=== PATIENT | female | born 1985 | race Hispanic/Latino ===

== ENCOUNTER 2016-04-05 22:30 | Emergency (ER) | payer OTHER, MEDICARE ==
[~2016-04-05] VITALS: Ht 167.6 cm; Wt 82.6 kg
[~2016-04-05 22:30] MED LIST: AMITIZA24 MCG PO; DIAZEPAM5 MG PO; DILANTIN ER 10100 MG PO; DILAUDID8 MG PO; ESTRACE0.1 MG/GM TOP; ESZOPICLONE2 MG PO; GABAPENTIN400 MG PO; HYDROMORPHONE HC4 MG PO; KETOROLAC TROME10 M1 PO; LEVAQUIN750 MG PO; LIDODERM 5% PAT1 PAT TOP; LIORESAL 10MG T10 MG PO; LYRICA300 MG PO; MEDROL DOSEPAK1 PAC PO; OMEPRAZOLE40 MG PO; OXYCODONE HYDRO30 MG PO; OXYCONTIN20 MG PO; PREDNICOT20 MG PO; PROMETHAZINE HC25 M3 PO; SUMATRIPTAN SU100 MG PO; VOLTAREN 5 ML5 ML OS; VOLTAREN GEL1% TOP; ZOLPIDEM TARTRAT5 MG PO
[2016-04-05 22:43] VITALS: BP 118/75
[2016-04-05 22:58] LABS: ABSOLUTE BASOPHIL COUNT 0 /CUMM (0.0-0.2); ABSOLUTE EOSINOPHIL COUNT 0.4 /CUMM (0.0-0.7); ABSOLUTE LYMPH COUNT 2.9 /CUMM (1.2-3.4); ABSOLUTE MONOCYTE COUNT 0.7 /CUMM (0.10-0.60); BASOPHIL % 0.6 % (0.0-2.0); EOSINOPHIL % 6.3 % (0-5); GRANULOCYTE % 33.7 % (42.2-75.2); HEMATOCRIT 37.1 % (37-47); MEAN CORPUSCULAR HGB 26.4 PG (27.0-31.0); MEAN CORPUSCULAR HGB CONC 32.2 G/DL (33.0-37.0); MEAN PLATELET VOLUME 9.1 FL (7.4-10.4); PLATELET COUNT 192 /CUMM (130-400); RBC DISTRIBUTION WIDTH 17.1 % (11.5-14.5); RED BLOOD CELL CT 4.52 /CUMM (4.20-5.40)
--- NOTE | 2016-04-05 23:07 | ED GI/GU/ABDOMINAL COMPLAINT ---
History of Present Illness General Chief Complaint: Nausea, Vomiting, Diarrhea Stated Complaint: HEADACHE, VOMITTING X1 DAY Source: patient Exam Limitations: no limitations Vital Signs & Intake/Output Vital Signs & Intake/Output Vital Signs Date Time Temp Pulse Resp B/P Pulse O2 O2 Flow FiO2 Ox Delivery Rate 04/05 2243 98.2 74 20 118/75 98 Room Air ED Intake and Output 04/06 0000 04/05 1200 Intake Total Output Total Balance Patient 182 lb Weight Allergies Coded Allergies: Iodine and Iodide Containing Produc (RASH 04/05/16) ibuprofen (RASH 04/05/16) shellfish derived (SOB 04/05/16) Reconcile Medications Baclofen (Lioresal) 10 MG TABLET 1 TAB PO TID MUSCLE SPASM (Reported) Diazepam 5 MG TABLET 1 TAB PO AT BEDTIME MUSCLE SPASMS (Reported) Diclofenac Sodium (Voltaren) 1% GEL 1 GM TOP 4 TIMES/DAY PRN PAIN (Reported) apply to affected area(s) Eszopiclone 2 MG TAB 1 TAB PO QHS SLEEP (Reported) Gabapentin 400 MG CAPSULE 400 MG PO TID PAIN (Reported) HYDROMORPHONE HCL (Dilaudid) 8 MG TAB 1 TAB PO TID PAIN (Reported) Ketorolac Tromethamine 10 MG TABLET 1 TAB PO TID PRN HEADACHE Lidocaine HCl (Lidoderm Patch) 5 % PAT 1 PAT TOP DAILY PAIN (Reported) may wear up to 12 hours Lubiprostone (Amitiza) 24 MCG CAPSULE 1 CAP PO BID PRN GI (Reported) Methylprednisolone. (Medrol) 1 PAC PAC 1 PAC PO AD INFLAMMATION Omeprazole 40 MG CAPSULE.DR 1 CAP PO DAILY AC GI (Reported) Omeprazole Magnesium (Prilosec Otc) 20 MG TABLET.DR 1 TAB PO DAILY upset stomach Ondansetron (Zofran Odt) 4 MG TAB.RAPDIS 1 TAB SL TID PRN nausea Oxycodone Cr (OxyContin) 20 MG TAB 1 TAB PO BID PAIN (Reported) OXYCODONE HCL (Oxycodone Hydrochloride) 30 MG TABLET 30 MG PO Q6H PAIN ( Reported) Phenytoin (Dilantin ER 100MG Cap) 100 MG CAP 1 CAP PO TID SEIZURES (Reported) Pregabalin (Lyrica) 300 MG CAP 1 CAP PO BID pain Promethazine HCl 25 MG TABLET 1 TAB PO Q6P PRN NAUSEA Sumatriptan Succinate 100 MG TABLET 1 TAB PO AD HEADACHE (Reported) may repeat in 2 hours; do not exceed 200 mg in 24 hours Triage Note: TRIAGE: PT TO ER C/C N/V/D AND STOMACH PAIN X 2 DAYS. ALSO COMPLAINS OF HEADACHE PAIN. REPORTS NO DIARRHEA TODAY. VOMITED X 3 TODAY. DENIES URINARY S/S, SELF-CATHETERIZES SELF AT BASELINE R/T NEUROGENIC BLADDER. Triage Nurses Notes Reviewed? yes ? n Is pt currently ? No Onset: Gradual Duration: day(s): Timing: recent history Quality/Severity: cramping Location: generalized abdomen Radiation: no radiation Activities at Onset: none Prior Abdominal Problems: none Modifying Factors: Worsens With: defecating, vomiting. Associated Symptoms: abdominal pain, diarrhea, nausea/vomiting HPI: 31 yo woman, h/o neurostimulator, epilepsy, presents with diffuse abdominal pain, nausea, vomiting, diarrhea x 1 day. She notes no fever, chills, chest pain, shortness of breath. She is otherwise well. Past History Travel History Traveled to [place] past 21 day No Medical History Any Pertinent Medical History? 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 No Review of Systems Review of Systems Constitutional: Reports: no symptoms. EENTM: Reports: no symptoms. Respiratory: Reports: no symptoms. Cardiovascular: Reports: no symptoms. GI: Reports: no symptoms. Genitourinary: Reports: no symptoms. Musculoskeletal: Reports: no symptoms. Skin: Reports: no symptoms. Neurological/Psychological: Reports: no symptoms. Hematologic/Endocrine: Reports: no symptoms. Immunologic/Allergic: Reports: no symptoms. All Other Systems: Reviewed and Negative Physical Exam Physical Exam General Appearance: well developed/nourished, mild distress Head: atraumatic, normal appearance Eyes: Bilateral: normal appearance. Ears, Nose, Throat, Mouth: hearing grossly normal Neck: normal inspection, supple, full range of motion Respiratory: normal breath sounds, chest non-tender, no respiratory distress, quiet respiration, lungs clear Cardiovascular: regular rate/rhythm Gastrointestinal: normal bowel sounds, soft, tender to palpation diffusely, but mostly in mid epigastrum. no focal rlq tenderness to palpation. Back: normal inspection, normal range of motion Extremities: normal range of motion Neurologic/Psych: no motor/sensory deficits, awake, alert, oriented x 3 Skin: intact, normal color, warm/dry Core Measures ACS in differential dx? No Severe Sepsis Present: No Septic Shock Present: No Progress Differential Diagnosis: viral gastro vs other. Plan of Care: Orders Procedure Date/time Status URINALYSIS 04/05 2231 Complete LIPASE 04/05 2231 Complete HEPATIC FUNCTION PANEL 04/05 2231 Complete HUMAN BETA HCG SCREEN 04/05 2231 Complete CBC WITHOUT DIFFERENTIAL 04/05 2231 Complete BASIC METABOLIC PANEL 04/05 2231 Complete AMYLASE 04/05 2231 Complete Current Medications Sig/Francis Start time Last Medication Dose Stop Time Status Admin Lorazepam 2 MG ONCE ONE 04/06 011 CAN (Ativan) 04/06 0116 Laboratory Tests 04/06/16 0005: Urine Color YEL, Urine Clarity CLEAR, Urine pH 6.0, Ur Specific [place] 1.025, Urine Protein NEG, Urine Ketones NEG, Urine Nitrite NEG, Urine Bilirubin NEG, Urine Urobilinogen 0.2, Ur Leukocyte Esterase NEG, Ur Microscopic EXAM NOT REQUIRED, Urine Hemoglobin NEG, Urine Glucose NEG 04/05/16 2251: Anion Gap 12, Estimated GFR > 60, BUN/Creatinine Ratio 14.3, Glucose 83, Calcium 8.6, Total Bilirubin 0.3, Direct Bilirubin 0.3, AST 21, ALT 29, Alkaline Phosphatase 89, Total Protein 7.4, Albumin 3.9, Amylase < 30 L, Lipase 97, Total Beta HCG NEGATIVE, CBC w Diff NO MAN DIFF REQ, RBC 4.52, MCV 82.0, MCH 26.4 L, RDW 17.1 H, MPV 9.1, Gran % 33.7 L, Lymphocytes % 47.7, Monocytes % 11.7 H, Eosinophils % 6.3 H, Basophils % 0.6, Absolute Granulocytes 2.0, Absolute Lymphocytes 2.9, Absolute Monocytes 0.7 H, Absolute Eosinophils 0.4, Absolute Basophils 0, PUBS MCHC 32.2 L Initial ED EKG: none Departure Departure Disposition: HOME OR SELF CARE Condition: Stable Clinical Impression Primary Impression: Abdominal pain Secondary Impressions: Gastroenteritis Referrals: ANANDA STREETER,LEIDY Ortega (PCP/Family) Departure Forms: Customer Survey General Discharge Information Prescriptions: Current Visit Scripts Ondansetron (Zofran Odt) 1 TAB SL TID PRN nausea #10 TAB Ref 1 Omeprazole Magnesium (Prilosec Otc) 1 TAB PO DAILY #30 TAB Comments 04/06/16, 2:52am... pt feeling better... She would like to go home... upon repeat exam, pt had no abdominal tenderness. We discussed a ct scan... She declines. Pt safe for discharge with close follow up... send rx for zofran and prilosec to pharmacy.
[2016-04-06] MEDS ORDERED: ZOFRAN ODT4 M1 SL (01:22)
[2016-04-06] MEDS ORDERED: PRILOSEC OTC20 M1 PO (01:23)
== END 2016-04-06 03:00 ==
LOC: ERH 22:30
PROVIDERS: Pediatrics
DX: K52.9 Noninfective gastroenteritis and colitis, unspecified (principal)
CPT/HCPCS: 81003; 96374; 96375; J2405; J2550

== ENCOUNTER 2016-09-24 00:02 | Emergency (ER) | payer OTHER, MEDICARE ==
[~2016-09-24] VITALS: Ht 172.7 cm; Wt 83.9 kg
[~2016-09-24 00:02] MED LIST changes: +PRILOSEC OTC20 M1 PO; +ZOFRAN ODT4 M1 SL
--- NOTE | 2016-09-24 01:01 | ED HEADACHE COMPLAINT ---
History of Present Illness General Chief Complaint: Headache Stated Complaint: RINALDI Source: patient, old records Exam Limitations: no limitations Vital Signs & Intake/Output Vital Signs & Intake/Output Vital Signs Date Time Temp Pulse Resp B/P B/P Pulse O2 O2 Flow FiO2 Mean Ox Delivery Rate 09/24 0253 97.2 78 20 98/61 97 Room Air 09/24 0127 Room Air 09/24 0033 98.0 95 16 116/78 98 Room Air Allergies Coded Allergies: Iodine and Iodide Containing Produc (RASH 04/05/16) ibuprofen (RASH 04/05/16) shellfish derived (SOB 04/05/16) Reconcile Medications Baclofen (Lioresal) 10 MG TABLET 1 TAB PO TID MUSCLE SPASM (Reported) Diazepam 5 MG TABLET 1 TAB PO AT BEDTIME MUSCLE SPASMS (Reported) Diclofenac Sodium (Voltaren) 1% GEL 1 GM TOP 4 TIMES/DAY PRN PAIN (Reported) apply to affected area(s) Eszopiclone 2 MG TAB 1 TAB PO QHS SLEEP (Reported) Gabapentin 400 MG CAPSULE 400 MG PO TID PAIN (Reported) HYDROMORPHONE HCL (Dilaudid) 8 MG TAB 1 TAB PO TID PAIN (Reported) Ketorolac Tromethamine 10 MG TABLET 1 TAB PO TID PRN HEADACHE Lidocaine HCl (Lidoderm Patch) 5 % PAT 1 PAT TOP DAILY PAIN (Reported) may wear up to 12 hours Lubiprostone (Amitiza) 24 MCG CAPSULE 1 CAP PO BID PRN GI (Reported) Methylprednisolone. (Medrol) 1 PAC PAC 1 PAC PO AD INFLAMMATION Omeprazole 40 MG CAPSULE.DR 1 CAP PO DAILY AC GI (Reported) Omeprazole Magnesium (Prilosec Otc) 20 MG TABLET.DR 1 TAB PO DAILY upset stomach Ondansetron (Zofran Odt) 4 MG TAB.RAPDIS 1 TAB SL TID PRN nausea Oxycodone Cr (OxyContin) 20 MG TAB 1 TAB PO BID PAIN (Reported) OXYCODONE HCL (Oxycodone Hydrochloride) 30 MG TABLET 30 MG PO Q6H PAIN ( Reported) Phenytoin (Dilantin ER 100MG Cap) 100 MG CAP 1 CAP PO TID SEIZURES (Reported) Pregabalin (Lyrica) 300 MG CAP 1 CAP PO BID pain Promethazine HCl 25 MG TABLET 1 TAB PO Q6P PRN NAUSEA Sumatriptan Succinate 100 MG TABLET 1 TAB PO AD HEADACHE (Reported) may repeat in 2 hours; do not exceed 200 mg in 24 hours Triage Note: TRIAGE: SEVERE 10/10 FRONTAL/RIGHT PARIETAL HEADACHE X 3 DAYS. 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 +N/V LAST VOMITED 5PM. +PHOTOSENSITIVITY, PUPILS EQUAL AND REACTIVE. ALSO C/O BACK PAIN WITH CHRONIC PAIN AND HX SURGERIES. HAS HX PE WITH RIGHT PULMONARY FILTER. SPEECH CLEAR, NO FACIAL DROOP NOTED. APPEARS TO HAVE INTERMITTENT MUSCLE SPACTICITY AND JOLTING IN TRIAGE. HX SEIZURES Triage Nurses Notes Reviewed? yes : No Patient currently breastfeeds: No HPI: Patient presents with a three-day history of a throbbing headache. The headache is in the frontal area. Positive photophobia. Positive nausea but no vomiting. No fevers or chills. Similar symptoms in the past with her migraines but she states that this one is worse than normal. There is no recent trauma. There is no radiation of the pain. The pain is 10 out of 10. Past History Travel History Traveled to [place] past 21 day No Medical History Any Pertinent Medical History? 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 No Review of Systems Review of Systems Constitutional: Reports: no symptoms. Eyes: Reports: see HPI, photophobia. Ears, Nose, Throat, Mouth: Reports: no symptoms. Respiratory: Reports: no symptoms. Cardiovascular: Reports: no symptoms. Gastrointestinal/Abdominal: Reports: see HPI, nausea. Genitourinary: Reports: no symptoms. Musculoskeletal: Reports: no symptoms. Skin: Reports: no symptoms. Neurological/Psychological: Reports: see HPI, headache. Hematologic/Endocrine: Reports: no symptoms. Endocrine: Reports: no symptoms. Immunologic/Allergic: Reports: no symptoms. All Other Systems: Reviewed and Negative Physical Exam Physical Exam General Appearance: well developed/nourished, alert, awake, moderate distress Head: atraumatic, normal appearance Eyes: Bilateral: PERRL, EOMI. Ears, Nose, Throat: normal pharynx, normal ENT inspection, hearing grossly normal Neck: normal inspection, supple, full range of motion Respiratory: normal breath sounds, chest non-tender, no respiratory distress, lungs clear Cardiovascular: regular rate/rhythm, normal peripheral pulses Gastrointestinal: normal bowel sounds, soft, non-tender, no organomegaly Back: normal inspection, normal range of motion Extremities: normal inspection, normal capillary refill, normal range of motion, no edema Psychiatric: awake, alert, oriented x 3 Cranial Nerves: normal hearing, normal speech, PERRL Coordination/Gait: normal gait Motor/Sensory: no motor/sensory deficits Skin: intact, normal color, warm/dry Core Measures Severe Sepsis Present: No Septic Shock Present: No Progress Differential Diagnosis: migraine RINALDI, SSS thrombosis, subarach. Hem., tension RINALDI Plan of Care: Current Medications Sig/Francis Start time Last Medication Dose Stop Time Status Admin Diphenhydramine HCl 25 MG ONCE ONE 09/24 314 UNVr (Benadryl) 09/25 315 Comments: Patient is feeling 90% better. Patient states that the throbbing sensation is gone but she still has a slight pressure sensation. Patient states that usually Benadryl helps a pressure sensation. Patient wants to get an IV dose of Benadryl and then she wants to go home. Departure Departure Disposition: HOME OR SELF CARE Condition: Stable Clinical Impression Primary Impression: Migraine Qualifiers: Migraine type: without aura Status migrainosus presence: without status migrainosus Intractability: not intractable Qualified Code: G43.009 - Migraine without aura, not intractable, without status migrainosus Referrals: ANANDA STREETER,LEIDY Ortega (PCP/Family) Additional Instructions: RETURN FOR ANY CONCERNS Departure Forms: Customer Survey General Discharge Information
[2016-09-24 05:27] VITALS: BP 110/70
== END 2016-09-24 05:29 ==
LOC: ERH 00:02
DX: G43.909 Migraine, unspecified, not intractable, without status migrainosus (principal)
CPT/HCPCS: 96361; 96374; 96375; J1200; J1885; J2550

== ENCOUNTER 2017-04-03 23:12 | Emergency (ER) | payer OTHER, MEDICARE ==
[~2017-04-03] VITALS: Ht 167.6 cm; Wt 75.8 kg
[~2017-04-03 23:12] MED LIST changes: +KEFLEX500 M1 PO
--- NOTE | 2017-04-03 23:26 | ED UPPER/LOWER EXTREMITY COMPL ---
History of Present Illness General Chief Complaint: General Adult Stated Complaint: RINALDI, DOG BITE TO RIGHT HAND Source: patient Exam Limitations: no limitations Vital Signs & Intake/Output Vital Signs & Intake/Output Vital Signs Date Time Temp Pulse Resp B/P B/P Pulse O2 O2 Flow FiO2 Mean Ox Delivery Rate 04/04 0005 98.3 89 16 123/83 98 Room Air Room Air Allergies Coded Allergies: Iodine and Iodide Containing Produc (RASH 04/04/17) ibuprofen (RASH 04/04/17) shellfish derived (SOB 04/04/17) Reconcile Medications Amoxicillin/Potassium Clav (Augmentin 875-125 Tablet) 875 MG-125 MG TABLET 1 TAB PO BID DOG BITE Baclofen (Lioresal) 10 MG TABLET 1 TAB PO TID MUSCLE SPASM (Reported) Cephalexin (Keflex) 500 MG CAPSULE 1 CAP PO TID PPX Diazepam 5 MG TABLET 1 TAB PO AT BEDTIME MUSCLE SPASMS (Reported) Diclofenac Sodium (Voltaren) 1% GEL 1 GM TOP 4 TIMES/DAY PRN PAIN (Reported) apply to affected area(s) Eszopiclone 2 MG TAB 1 TAB PO QHS SLEEP (Reported) Gabapentin 400 MG CAPSULE 400 MG PO TID PAIN (Reported) HYDROMORPHONE HCL (Dilaudid) 8 MG TAB 1 TAB PO TID PAIN (Reported) Ketorolac Tromethamine 10 MG TABLET 1 TAB PO TID PRN HEADACHE Lidocaine HCl (Lidoderm Patch) 5 % PAT 1 PAT TOP DAILY PAIN (Reported) may wear up to 12 hours Lubiprostone (Amitiza) 24 MCG CAPSULE 1 CAP PO BID PRN GI (Reported) Methylprednisolone. (Medrol) 1 PAC PAC 1 PAC PO AD INFLAMMATION Naproxen Sodium (Midol) 220 MG TABLET 1 TAB PO BID PRN PAIN Omeprazole 40 MG CAPSULE.DR 1 CAP PO DAILY AC GI (Reported) Omeprazole Magnesium (Prilosec Otc) 20 MG TABLET.DR 1 TAB PO DAILY upset stomach Ondansetron (Zofran Odt) 4 MG TAB.RAPDIS 1 TAB SL TID PRN nausea Ondansetron (Zofran Odt) 4 MG TAB.RAPDIS 1 TAB SL TID PRN nausea Oxycodone Cr (OxyContin) 20 MG TAB 1 TAB PO BID PAIN (Reported) OXYCODONE HCL (Oxycodone Hydrochloride) 30 MG TABLET 30 MG PO Q6H PAIN ( Reported) Phenytoin (Dilantin ER 100MG Cap) 100 MG CAP 1 CAP PO TID SEIZURES (Reported) Pregabalin (Lyrica) 300 MG CAP 1 CAP PO BID pain Promethazine HCl 25 MG TABLET 1 TAB PO Q6P PRN NAUSEA Sumatriptan Succinate 100 MG TABLET 1 TAB PO AD HEADACHE (Reported) may repeat in 2 hours; do not exceed 200 mg in 24 hours Sumatriptan Succinate (Imitrex) 50 MG TABLET 1 TAB PO TID PRN migraine Triage Nurses Notes Reviewed? yes Onset: Abrupt Duration: hour(s): Timing: single episode today Severity: moderate Pain/Injury Location: Right: Hand. Method of Injury: dog bite Modifying Factors: Improves With: rest. Worsens With: movement. Associated Symptoms: right hand swelling HPI: 32 yo woman, h/o migraines, was bit in the hand by her friend's dog. The dog is from [place]. Its vaccination status is uncertain. She notes a puncture wound in her right hand, mild swelling and discomfort. No red streaking, fever, chills. She is able to move her hand and wrist without problem. She also notes a migraine. "It is really bad... I usually need an iv when it gets this bad." She notes mild nausea. No fever, chills, diarrhea, vomiting. Past History Travel History Traveled to [place] past 21 day No Medical History Any Pertinent Medical History? 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 No Review of Systems Review of Systems Constitutional: Reports: no symptoms. EENTM: Reports: no symptoms. Respiratory: Reports: no symptoms. Cardiovascular: Reports: no symptoms. Gastrointestinal/Abdominal: Reports: no symptoms. Genitourinary: Reports: no symptoms. Musculoskeletal: Reports: no symptoms. Skin: Reports: no symptoms. Neurological/Psychological: Reports: no symptoms. Hematologic/Endocrine: Reports: no symptoms. Immunological: Reports: no symptoms. All Other Systems: Reviewed and Negative Physical Exam Physical Exam General Appearance: well developed/nourished, mild distress Head: atraumatic, normal appearance Eyes: Bilateral: PERRL, EOMI. Ears, Nose, Throat: normal pharynx, normal ENT inspection, hearing grossly normal Neck: normal inspection, supple Cardiovascular/Respiratory: regular rate/rhythm Gastrointestinal: soft, nontender Back: normal inspection Hand Right: puncture wound in the dorsum of right hand. mild swelling and tenderness. no joint involvement Skin: intact, normal color, warm/dry Lymphatic: no anterior cervical koby Progress Differential Diagnosis: dog bite, vs cellulitis vs other. pt also with likely migraine headache vs other. Plan of Care: Current Medications Sig/Francis Start time Last Medication Dose Stop Time Status Admin Sodium Chloride 1,000 ML BOLUS ONE 04/04 214 AC 04/04 (Normal Saline 0.9%) 04/04 313 0237 Departure Departure Disposition: HOME OR SELF CARE Condition: Stable Clinical Impression Primary Impression: Dog bite Secondary Impressions: Migraine headache Referrals: Serena STREETER,Elise Ortega (PCP/Family) Departure Forms: Customer Survey General Discharge Information Prescriptions: Current Visit Scripts Amoxicillin/Potassium Clav (Augmentin 875-125 Tablet) 1 TAB PO BID #20 TAB Ondansetron (Zofran Odt) 1 TAB SL TID PRN nausea #10 TAB Sumatriptan Succinate (Imitrex) 1 TAB PO TID PRN migraine #9 TAB Ref 1 Naproxen Sodium (Midol) 1 TAB PO BID PRN PAIN #20 TAB Ref 1 Comments 04/04/17, 4:12am... pt has rested for 5 hours in the ED. She is feeling better. She feels comfortable to go home. supportive medication rx given. pt will follow up for rabies vaccine and wound check.
[2017-04-03] MEDS ORDERED: AUGMENTIN 875-1 EACH PO (23:32)
[2017-04-04] MEDS ORDERED: IMITREX50 M1 PO (04:12)
[2017-04-04] MEDS ORDERED: ZOFRAN ODT4 M1 SL (04:12)
[2017-04-04] MEDS ORDERED: MIDOL220 MG PO (04:13)
[2017-04-04 06:05] VITALS: BP 102/67
== END 2017-04-04 06:07 ==
LOC: ERH 23:12
DX: S61.451A Open bite of right hand, initial encounter (principal); G43.909 Migraine, unspecified, not intractable, without status migrainosus; W54.0XXA Bitten by dog, initial encounter; Y93.9 Activity, unspecified; Y92.9 Unspecified place or not applicable
CPT/HCPCS: 90376; 90471; 90714; 96372; 96374; 96375; J0131; J1885; J3490